=== PATIENT | male | born 1990 | race Caucasian/White ===

== ENCOUNTER 2017-10-12 07:17 | Emergency (ER) | END 2017-10-12 07:44 | disposition home or self-care (01) ==

== ENCOUNTER 2017-10-14 11:28 | Emergency (ER) | END 2017-10-14 12:41 | disposition home or self-care (01) ==

== ENCOUNTER 2017-12-21 21:09 | Emergency (ER) | END 2017-12-22 00:30 | disposition home or self-care (01) ==

== ENCOUNTER 2017-12-30 17:07 | Emergency (ER) | END 2017-12-30 18:32 | disposition home or self-care (01) ==